=== PATIENT | male | born 1955 | race Caucasian/White ===

== ENCOUNTER 2021-12-27 08:26 | Day surgery (SDC) | payer MEDICARE, BC ==
[2021-12-27] MEDS ORDERED: Lactated Ringers 1,000 ML IV SCH (08:30)
[2021-12-27] MEDS ORDERED: Sodium Chloride 0.9% 10 ML Syringe FLUSH PRN (08:30)
[2021-12-27] MEDS ORDERED: Propofol 200 MG/20 ML SDV ONE (08:52)
[2021-12-27] MEDS ORDERED: Midazolam 1 MG/ML 2 ML SDV ONE (08:52)
[2021-12-27] MEDS ORDERED: Lactated Ringers 1,000 ML ONE (10:05)
[2021-12-27 14:51] VITALS: BP 103/58; PULSE 64
== END 2021-12-27 12:15 | disposition home or self-care (01) ==
LOC: KA.SDS 08:26
PROVIDERS: ATTEND Family Medicine
DX: D12.3 Benign neoplasm of transverse colon (principal); D12.4 Benign neoplasm of descending colon; K64.4 Residual hemorrhoidal skin tags; K57.30 Diverticulosis of large intestine without perforation or abscess without bleeding; M48.02 Spinal stenosis, cervical region; R73.03 Prediabetes; I10 Essential (primary) hypertension; E78.00 Pure hypercholesterolemia, unspecified; E03.9 Hypothyroidism, unspecified; Z85.46 Personal history of malignant neoplasm of prostate; Z79.899 Other long term (current) drug therapy; Z79.82 Long term (current) use of aspirin
CPT/HCPCS: 00812; J2250; J2704; J7120